=== PATIENT | male | born 1965 | race Caucasian/White ===

== ENCOUNTER 2017-07-08 19:53 | Inpatient (IN) | payer OTHER ==
[2017-07-08] VITALS (8 sets, daily range): BP systolic 119–173; BP diastolic 72–112
[~2017-07-08] VITALS: Ht 185.4 cm; Wt 82.3 kg
--- NOTE | ~2017-07-08 | EKG ---
[place], [place] ELECTROCARDIOGRAM REPORT NAME: ANA HERNANDEZ UNIT #: [id number] ROOM: 426 DOCTOR: IFEANYI UNDERWOOD,KALYAN BIRTHDATE: [birth year] DOS: 07/09/2017 TIME: 1:48 a.m. IMPRESSION: 1. Sinus rhythm, sinus bradycardia. 2. Nonspecific ST-T changes. 3. Nondiagnostic ST elevation. KALYAN SUGGS MD CM:EKGRPT:ELECTROCARDIOGRAM REPORT 1505 1649 KALYAN SUGGS MD
--- NOTE | ~2017-07-08 | EKG ---
[place], [place] ELECTROCARDIOGRAM REPORT NAME: ANA HERNANDEZ UNIT #: [id number] ROOM: 426 DOCTOR: IFEANYI UNDERWOOD,KALYAN BIRTHDATE: [birth year] DOS: 07/08/2017 TIME: 2254 hours. IMPRESSION: 1. Sinus rhythm. 2. Nonspecific ST-T changes. KALYAN SUGGS MD CM:EKGRPT:ELECTROCARDIOGRAM REPORT 1504 1648 KALYAN SUGGS MD
--- NOTE | ~2017-07-08 | EKG ---
[place], [place] ELECTROCARDIOGRAM REPORT NAME: ANA HERNANDEZ UNIT #: [id number] ROOM: 426 DOCTOR: IFEANYI UNDERWOOD,KALYAN BIRTHDATE: [birth year] DOS: 07/08/2017 TIME: 2033 hours. IMPRESSION: 1. Sinus rhythm. 2. Nonspecific ST-T changes. KALYAN SUGGS MD CM:EKGRPT:ELECTROCARDIOGRAM REPORT 1503 1647 KALYAN SUGGS MD
--- NOTE | ~2017-07-08 | EKG ---
[place], [place] ELECTROCARDIOGRAM REPORT NAME: ANA HERNANDEZ UNIT #: [id number] ROOM: 426 DOCTOR: IFEANYI UNDERWOOD,KALYAN BIRTHDATE: [birth year] DOS: 07/08/2017 TIME: 1955 hours. IMPRESSION: 1. Sinus rhythm. 2. Nonspecific ST-T changes. KALYAN SUGGS MD CM:EKGRPT:ELECTROCARDIOGRAM REPORT 1503 1630 KALYAN SUGGS MD
[~2017-07-08 19:53] MED LIST: FLOMAX0.4 MG PO; HYDROCODONE BIT1 T11 PO; MEDROL DOSEPAK4 MG PO; VICODIN ES 7501 TAB PO; ZOFRAN ODT4 MG SL
[2017-07-08 20:29] LABS: HEMOGLOBIN 14.1 g/dl (14.0-18.0); MEAN CORPUSCULAR HGB 28.5 pg (27.0-31.0); MEAN CORPUSCULAR HGB CONC 34.4 g/dl (33.0-37.0); MEAN PLATELET VOLUME 9.5 fl (9.6-12.3); NUCLEATED RED BLOOD CELL 0.2 % (0.0-0.0); PLATELET COUNT AUTOMATED 257 10*3/uL (130-400); RED BLOOD COUNT 4.94 10*6/uL (4.50-5.90); RED CELL DISTRI WIDTH 15.7 % (0-14.5); WHITE BLOOD COUNT 9.2 10*3/uL (4.8-10.8)
[2017-07-08 20:40] LABS: ACT PARTIAL THROMBO TIME 28.4 SECONDS (20.8-31.5)
[2017-07-08 20:48] LABS: ALBUMIN 4.2 gm/dl (3.1-4.5); ALKALINE PHOSPHATASE 119 U/L (45-117); BUN 14 mg/dl (7-24); CHLORIDE 105 mmol/L (98-107); CREATININE 1.04 mg/dL (0.70-1.30); POTASSIUM 4.4 mmol/L (3.5-5.1); SGOT/AST 29 IU/L (3-35); SGPT/ALT 31 U/L (12-78); SODIUM 139 mmol/L (136-145); TOTAL PROTEIN 7.9 gm/dL (6.4-8.2)
[2017-07-08 20:49] LABS: TROPONIN I < 0.015 ng/ml (<0.045)
[2017-07-08 20:50] LABS: BASOPHILS 1 % (0-1); TOTAL CELLS COUNTED 100 #CELLS
[2017-07-08 20:51] LABS: PLATELET SUFFICIENCY NORMAL (NORMAL); POLYCHROMASIA SLIGHT
[2017-07-08 20:52] LABS: OVALOCYTES FEW
--- NOTE | 2017-07-08 21:17 | NUR ---
PT STATES THAT HIS PAIN LEVEL HAS GONE DOWN TO A 6/10 BUT STILL CONSTANT AND BOTHERSOME. CHELSEA MEDEL RN
--- NOTE | 2017-07-08 21:46 | NUR ---
PT REPORTS PAIN 4/10 IN UPPER ABDOMINAL AREA AT THIS TIME.PT MEDICATE 0.5MG DILAUDID IVP.PT REFUSING REGLAN AT THIS TIME.
--- NOTE | 2017-07-08 23:00 | NUR ---
PT REPORTS MILD DISCOMFORT IN UPPER ABDOMINAL AREA BUT STATES HE FEELS ALOT BETTER.
--- NOTE | 2017-07-08 23:51 | NUR ---
NURSE TO RETURN CALL FOR REPORT.
[2017-07-09 00:30] VITALS: BP 123/74
--- NOTE | 2017-07-09 00:30 | NUR ---
A 52, admitted to , under the services of ABBI García DO with a diagnosis of ABDOMINAL PAIN, CHOLELITHIASIS. Chief complaint is SUBSTERNAL CHEST PAIN NON RADIATING. Patient arrived via stretcher from ER. Monitor applied. Initial assessment completed. Vital signs taken and recorded. ABBI GARCÍA DO notified of admission to the unit. Orders received. See assessment for past medical history, medications and allergies. Patient and/or family oriented to unit. [facility] reviewed. Clothing/patient valuable form completed. PETRA HALL
--- NOTE | 2017-07-09 06:24 | NUR ---
SPOKE WITH DR. GODWIN REGARDING CONSULT ORDER.
[2017-07-09 06:37] LABS: BASO % 0.3 % (0.0-1.0); EOS % 0.2 % (1.0-4.0); HEMATOCRIT 39.1 % (42.0-52.0); LYMPH # 0.7 10*3/uL (1.3-4.4); MEAN CELL VOLUME 84.3 fl (80.0-94.0); MEAN CORPUSCULAR HGB CONC 33.2 g/dl (33.0-37.0); MONO # 0.9 10*3/uL (0.1-1.0); MONO % 8.2 % (3.0-9.0); NEUT # 9.3 10*3/uL (2.3-7.9); NEUT % 83.6 % (47.0-73.0); PLATELET COUNT AUTOMATED 217 10*3/uL (130-400); RED BLOOD COUNT 4.64 10*6/uL (4.50-5.90); RED CELL DISTRI WIDTH 15.7 % (0-14.5); WHITE BLOOD COUNT 11.2 10*3/uL (4.8-10.8)
[2017-07-09 07:10] LABS: ALBUMIN 3.7 gm/dl (3.1-4.5); ALKALINE PHOSPHATASE 109 U/L (45-117); BUN 10 mg/dl (7-24); CHLORIDE 106 mmol/L (98-107); CHOLESTEROL 175 mg/dL (<200); CREATININE 0.87 mg/dL (0.70-1.30); HDL CHOLESTEROL 33 mg/dl (40-60); LDL CHOLESTEROL 106 mg/dL (9-159); PHOSPHOROUS 2.5 mg/dL (2.5-4.9); POTASSIUM 4.1 mmol/L (3.5-5.1); SGOT/AST 27 IU/L (3-35); SGPT/ALT 28 U/L (12-78); SODIUM 140 mmol/L (136-145); TOTAL PROTEIN 7.1 gm/dL (6.4-8.2); TRIGLYCERIDES 182 mg/dl (<150); VLDL CHOLESTEROL 36 mg/dL (6-40)
[2017-07-09 07:15] LABS: ACT PARTIAL THROMBO TIME 28.3 SECONDS (20.8-31.5)
[2017-07-09 08:00] VITALS: BP 111/72
[2017-07-09 08:20] LABS: VITAMIN D, 25-HYDROXY 8.7 ng/mL (30-100)
--- NOTE | 2017-07-09 09:00 | NUR ---
DR GODWIN IN TO SEE PT.
--- NOTE | 2017-07-09 12:14 | NUR ---
PT DISCHARGED AT THIS TIME WITH TO HOME VIA WHEELCHAIR.
--- NOTE | 2017-07-09 12:14 | NUR ---
Discharge instructions reviewed with patient/family. Patient receptive and verbalizes understanding. Follow-up care arranged. Written instructions given to patient/family. LORENZO ACOSTA
== END 2017-07-09 12:14 | disposition home or self-care (01) | DRG 445 ==
LOC: ED 19:53 → EDHOLD 23:29 → 4E 23:38
PROVIDERS: Emergency Medicine Emergency Medical Services; Family Medicine; ADMIT Internal Medicine
DX: K80.20 Calculus of gallbladder without cholecystitis without obstruction (principal); E87.2 Acidosis; E83.41 Hypermagnesemia; R73.9 Hyperglycemia, unspecified; Z90.49 Acquired absence of other specified parts of digestive tract; Z88.2 Allergy status to sulfonamides; Z88.8 Allergy status to other drugs, medicaments and biological substances

== ENCOUNTER 2021-06-05 16:53 | Emergency (ER) | payer OTHER ==
[~2021-06-05] VITALS: Ht 185.4 cm; Wt 70.3 kg
[2021-06-05 17:30] LABS: MEAN CELL VOLUME 82.5 fl (80.0-94.0); MEAN CORPUSCULAR HGB 26.7 pg (27.0-31.0); MEAN CORPUSCULAR HGB CONC 32.3 g/dl (33.0-37.0); NUCLEATED RED BLOOD CELL 0.2 10*3/uL (0.0-0.0); NUCLEATED RED BLOOD CELL 0.7 % (0.0-0.0); RED BLOOD COUNT 3.15 10*6/uL (4.50-5.90); RED CELL DISTRI WIDTH 17.1 % (0-14.5); WHITE BLOOD COUNT 28.9 10*3/uL (4.8-10.8)
[2021-06-05 17:37] LABS: PLATELET COUNT AUTOMATED 7 10*3/uL (130-400)
[2021-06-05 17:42] LABS: ACT PARTIAL THROMBO TIME 26.5 SECONDS (20.0-32.1); BUN 16 mg/dl (7-24); CHLORIDE 107 mmol/L (98-107); CREATININE 0.65 mg/dL (0.70-1.30); POTASSIUM 3.9 mmol/L (3.5-5.1); SODIUM 139 mmol/L (136-145)
[2021-06-05 18:11] LABS: ATYPICAL LYMPHS 2 % (0-0); TOTAL CELLS COUNTED 100 #CELLS
[2021-06-05 18:13] LABS: BLASTS 16 % (0-0); MICROCYTOSIS MODERATE; PLATELET SUFFICIENCY LOW (NORMAL); POLYCHROMASIA SLIGHT
== END 2021-06-05 22:26 | disposition left against medical advice (07) ==
LOC: ED 16:53
PROVIDERS: Emergency Medicine
DX: D69.6 Thrombocytopenia, unspecified (principal); Z88.1 Allergy status to other antibiotic agents

== ENCOUNTER 2021-06-06 08:04 | Emergency (ER) | payer OTHER ==
[~2021-06-06] VITALS: Ht 185.4 cm; Wt 70.3 kg
[2021-06-06 10:30] VITALS: BP 113/73
[2021-06-06 10:45] VITALS: BP 115/73
[2021-06-06 11:00] VITALS: BP 107/75
[2021-06-06 11:15] VITALS: BP 110/78
== END 2021-06-06 11:11 | disposition home or self-care (01) ==
LOC: ED 08:04
DX: D69.6 Thrombocytopenia, unspecified (principal); C92.00 Acute myeloblastic leukemia, not having achieved remission; Z88.1 Allergy status to other antibiotic agents

== ENCOUNTER 2021-07-15 20:30 | Emergency (ER) | payer OTHER ==
[~2021-07-15] VITALS: Ht 185.4 cm; Wt 72.6 kg
[2021-07-15 22:01] LABS: MEAN CELL VOLUME 87.9 fl (80.0-94.0); MEAN CORPUSCULAR HGB CONC 29.6 g/dl (33.0-37.0); NUCLEATED RED BLOOD CELL 26.4 % (0.0-0.0); NUCLEATED RED BLOOD CELL 4.5 10*3/uL (0.0-0.0); RED BLOOD COUNT 2.73 10*6/uL (4.50-5.90); RED CELL DISTRI WIDTH 22.5 % (0-14.5); WHITE BLOOD COUNT 16.9 10*3/uL (4.8-10.8)
[2021-07-15 22:13] LABS: ALBUMIN 3.5 gm/dl (3.1-4.5); ALKALINE PHOSPHATASE 145 U/L (45-117); BUN 17 mg/dl (7-24); CHLORIDE 107 mmol/L (98-107); CREATININE 0.77 mg/dL (0.70-1.30); SGOT/AST 55 IU/L (3-35); SGPT/ALT 21 U/L (12-78); SODIUM 140 mmol/L (136-145); TOTAL PROTEIN 6.8 gm/dL (6.4-8.2)
[2021-07-15 22:51] LABS: PLATELET COUNT AUTOMATED 16 10*3/uL (130-400)
[2021-07-15 23:20] LABS: TOTAL CELLS COUNTED 100 #CELLS
[2021-07-15 23:23] LABS: PLATELET SUFFICIENCY LOW (NORMAL)
[2021-07-15 23:30] LABS: POLYCHROMASIA SLIGHT
[2021-07-16] MEDS ORDERED: METHOCARBAMOL750 M1 PO (01:44)
[2021-07-16 09:55] LABS: BASOPHILS 6 % (0-1)
[2021-07-16 09:58] LABS: BLASTS 36 % (0-0)
[2021-07-16] MEDS ORDERED: HYDROCODONE-AC1 EACH PO (14:05)
== END 2021-07-16 02:12 | disposition home or self-care (01) ==
LOC: ED 20:30
PROVIDERS: Physician Assistant
DX: S39.012A Strain of muscle, fascia and tendon of lower back, initial encounter (principal); D72.829 Elevated white blood cell count, unspecified; D64.9 Anemia, unspecified; D69.6 Thrombocytopenia, unspecified; R79.89 Other specified abnormal findings of blood chemistry; Z88.1 Allergy status to other antibiotic agents; X58.XXXA Exposure to other specified factors, initial encounter; Y93.89 Activity, other specified; Y92.89 Other specified places as the place of occurrence of the external cause; Y99.8 Other external cause status

== ENCOUNTER 2021-07-16 13:48 | Emergency (ER) | payer OTHER ==
[~2021-07-16] VITALS: Wt 74.8 kg
[~2021-07-16 13:48] MED LIST changes: +METHOCARBAMOL750 M1 PO
[2021-07-16] MEDS ORDERED: HYDROCODONE-AC1 EACH PO (14:05)
[2021-07-16 14:44] LABS: HEMATOCRIT 27.2 % (42.0-52.0); MEAN CELL VOLUME 86.9 fl (80.0-94.0); MEAN CORPUSCULAR HGB 25.2 pg (27.0-31.0); NUCLEATED RED BLOOD CELL 23.8 % (0.0-0.0); NUCLEATED RED BLOOD CELL 4.9 10*3/uL (0.0-0.0); RED BLOOD COUNT 3.13 10*6/uL (4.50-5.90); RED CELL DISTRI WIDTH 23.1 % (0-14.5); WHITE BLOOD COUNT 20.4 10*3/uL (4.8-10.8)
[2021-07-16 14:52] LABS: ALBUMIN 3.7 gm/dl (3.1-4.5); ALKALINE PHOSPHATASE 155 U/L (45-117); BUN 18 mg/dl (7-24); CHLORIDE 108 mmol/L (98-107); CREATININE 0.67 mg/dL (0.70-1.30); LIPASE 62 U/L (73-393); POTASSIUM 4.2 mmol/L (3.5-5.1); SGOT/AST 57 IU/L (3-35); SGPT/ALT 22 U/L (12-78); SODIUM 141 mmol/L (136-145); TOTAL PROTEIN 7.2 gm/dL (6.4-8.2)
[2021-07-16 14:53] LABS: ACT PARTIAL THROMBO TIME 31.2 SECONDS (20.0-32.1)
[2021-07-16 15:14] LABS: ATYPICAL LYMPHS 3 % (0-0); BASOPHILS 1 % (0-1); TOTAL CELLS COUNTED 100 #CELLS
[2021-07-16 15:15] LABS: BLASTS 36 % (0-0); PLATELET SUFFICIENCY LOW (NORMAL); POLYCHROMASIA MODERATE
[2021-07-16 15:18] LABS: MICROCYTOSIS MODERATE
[2021-07-16 15:21] LABS: PLATELET COUNT AUTOMATED 16 10*3/uL (130-400)
== END 2021-07-16 15:17 | disposition home or self-care (01) ==
LOC: ED 13:48
PROVIDERS: Emergency Medicine
DX: M54.2 Cervicalgia (principal); C92.00 Acute myeloblastic leukemia, not having achieved remission; K80.80 Other cholelithiasis without obstruction; R16.1 Splenomegaly, not elsewhere classified; Z88.1 Allergy status to other antibiotic agents

== ENCOUNTER 2022-03-01 19:19 | Inpatient (IN) | payer OTHER ==
[~2022-03-01] VITALS: Ht 185.4 cm; Wt 75.1 kg
[2022-03-01] VITALS (8 sets, daily range): BP systolic 88–102; BP diastolic 47–69
[~2022-03-01 19:19] MED LIST changes: +HYDROCODONE-AC1 EACH PO
[2022-03-01 20:46] LABS: MEAN CELL VOLUME 98.9 fl (80.0-94.0); MEAN CORPUSCULAR HGB 29.9 pg (27.0-31.0); MEAN CORPUSCULAR HGB CONC 30.3 g/dl (33.0-37.0); NUCLEATED RED BLOOD CELL 2.5 10*3/uL (0.0-0.0); NUCLEATED RED BLOOD CELL 7.1 % (0.0-0.0); RED BLOOD COUNT 1.77 10*6/uL (4.50-5.90); RED CELL DISTRI WIDTH 27.6 % (0-14.5); WHITE BLOOD COUNT 35.4 10*3/uL (4.8-10.8)
[2022-03-01 21:02] LABS: ALKALINE PHOSPHATASE 95 U/L (45-117); BUN 13 mg/dl (7-24); CHLORIDE 106 mmol/L (98-107); CREATININE 0.74 mg/dL (0.70-1.30); POTASSIUM 4.3 mmol/L (3.5-5.1); SGOT/AST 40 IU/L (3-35); SGPT/ALT 12 U/L (12-78); SODIUM 137 mmol/L (136-145); TOTAL PROTEIN 5.5 gm/dL (6.4-8.2)
[2022-03-01 21:04] LABS: MANUAL DIFF REFLEX YES
[2022-03-01 21:16] LABS: BASOPHILS 2 % (0-1); TOTAL CELLS COUNTED 100 #CELLS
[2022-03-01 21:17] LABS: BLASTS 89 % (0-0)
[2022-03-01 21:18] LABS: PLATELET SUFFICIENCY LOW (NORMAL); POLYCHROMASIA MODERATE
[2022-03-01 21:20] LABS: MICROCYTOSIS SLIGHT
[2022-03-01 21:22] LABS: HEMATOCRIT 17.5 % (42.0-52.0); PLATELET COUNT AUTOMATED 11 10*3/uL (130-400)
[2022-03-02] VITALS (13 sets, daily range): BP systolic 97–126; BP diastolic 57–93
[2022-03-02] MEDS ORDERED: ACYCLOVIR800 MG PO (02:16)
[2022-03-02] MEDS ORDERED: HYDREA500 M1 PO (02:16)
[2022-03-02] MEDS ORDERED: PROTONIX40 MG PO (02:17)
[2022-03-02] MEDS ORDERED: FLUCONAZOLE200 MG PO (02:17)
[2022-03-02] MEDS ORDERED: ONDANSETRON8 MG PO (02:18)
[2022-03-02] MEDS ORDERED: DOXEPIN25 MG PO (02:18)
[2022-03-02] MEDS ORDERED: LEVOFLOXACIN500 MG PO (02:19)
[2022-03-02 07:57] LABS: MEAN CELL VOLUME 96.8 fl (80.0-94.0); MEAN CORPUSCULAR HGB 30.2 pg (27.0-31.0); MEAN CORPUSCULAR HGB CONC 31.3 g/dl (33.0-37.0); NUCLEATED RED BLOOD CELL 2.3 10*3/uL (0.0-0.0); NUCLEATED RED BLOOD CELL 6.7 % (0.0-0.0); RED BLOOD COUNT 2.48 10*6/uL (4.50-5.90); RED CELL DISTRI WIDTH 23.5 % (0-14.5); WHITE BLOOD COUNT 33.9 10*3/uL (4.8-10.8)
[2022-03-02 08:01] LABS: MANUAL DIFF REFLEX YES
[2022-03-02 08:04] LABS: PLATELET COUNT AUTOMATED 16 10*3/uL (130-400)
[2022-03-02 08:07] LABS: BUN 12 mg/dl (7-24); CHLORIDE 106 mmol/L (98-107); CREATININE 0.76 mg/dL (0.70-1.30); SODIUM 140 mmol/L (136-145)
[2022-03-02 08:24] LABS: ATYPICAL LYMPHS 1 % (0-0); BASOPHILS 2 % (0-1); BLASTS 81 % (0-0); TOTAL CELLS COUNTED 100 #CELLS
[2022-03-02 08:25] LABS: OVALOCYTES FEW; PLATELET SUFFICIENCY LOW (NORMAL); POLYCHROMASIA SLIGHT; SCHISTOCYTES FEW
== END 2022-03-02 10:00 | disposition home or self-care (01) | DRG 834 ==
LOC: ED 19:19 → 5E 03-02 00:04 → EDHOLD 03-02 00:04 → 5E 03-02 01:18
PROVIDERS: Emergency Medicine; Student in an Organized Health Care Education/Training Program; ADMIT Internal Medicine; ATTEND Internal Medicine
PROC: 30233R1 Transfusion of Nonautologous Platelets into Peripheral Vein, Percutaneous Approach (ICD-10-PCS; principal; 2022-03-02)
PROC: 30233N1 Transfusion of Nonautologous Red Blood Cells into Peripheral Vein, Percutaneous Approach (ICD-10-PCS; 2022-03-02)
DX: C92.00 Acute myeloblastic leukemia, not having achieved remission (principal); E43 Unspecified severe protein-calorie malnutrition; D69.6 Thrombocytopenia, unspecified; C95.00 Acute leukemia of unspecified cell type not having achieved remission; M54.2 Cervicalgia; Z88.2 Allergy status to sulfonamides; Z88.8 Allergy status to other drugs, medicaments and biological substances; Z90.49 Acquired absence of other specified parts of digestive tract; Z68.21 Body mass index [BMI] 21.0-21.9, adult

== ENCOUNTER 2022-03-31 09:59 | Emergency (ER) | payer OTHER ==
[~2022-03-31] VITALS: Wt 73.5 kg
[~2022-03-31 09:59] MED LIST changes: +ACYCLOVIR800 MG PO; +DOXEPIN25 MG PO; +FLUCONAZOLE200 MG PO; +HYDREA500 M1 PO; +LEVOFLOXACIN500 MG PO; +ONDANSETRON8 MG PO; +PROTONIX40 MG PO
[2022-03-31 10:33] LABS: HEMATOCRIT 22.5 % (42.0-52.0); MEAN CELL VOLUME 96.2 fl (80.0-94.0); MEAN CORPUSCULAR HGB 31.2 pg (27.0-31.0); MEAN CORPUSCULAR HGB CONC 32.4 g/dl (33.0-37.0); NUCLEATED RED BLOOD CELL 3.8 % (0.0-0.0); RED BLOOD COUNT 2.34 10*6/uL (4.50-5.90); RED CELL DISTRI WIDTH 24.4 % (0-14.5)
[2022-03-31 10:43] LABS: MANUAL DIFF REFLEX YES
[2022-03-31 10:50] LABS: ALKALINE PHOSPHATASE 91 U/L (45-117); BUN 11 mg/dl (7-24); CHLORIDE 106 mmol/L (98-107); CREATININE 0.66 mg/dL (0.70-1.30); POTASSIUM 4.2 mmol/L (3.5-5.1); SGOT/AST 30 IU/L (3-35); SGPT/ALT 12 U/L (12-78); SODIUM 137 mmol/L (136-145); TOTAL PROTEIN 6.2 gm/dL (6.4-8.2)
[2022-03-31 10:57] LABS: TOTAL CELLS COUNTED 100 #CELLS
[2022-03-31 10:58] LABS: OVALOCYTES FEW; PLATELET SUFFICIENCY LOW (NORMAL); POLYCHROMASIA SLIGHT; SCHISTOCYTES FEW
[2022-03-31 11:00] LABS: WHITE BLOOD COUNT 52.7 10*3/uL (4.8-10.8)
[2022-03-31 11:01] LABS: BLASTS 92 % (0-0); PLATELET COUNT AUTOMATED 5 10*3/uL (130-400)
[2022-03-31 14:22] VITALS: BP 108/67
[2022-03-31 15:20] VITALS: BP 103/66
== END 2022-03-31 15:44 | disposition home or self-care (01) ==
LOC: ED 09:59
PROVIDERS: Emergency Medicine
DX: D69.6 Thrombocytopenia, unspecified (principal); R21 Rash and other nonspecific skin eruption; E43 Unspecified severe protein-calorie malnutrition; Z88.2 Allergy status to sulfonamides; Z79.899 Other long term (current) drug therapy; Z79.2 Long term (current) use of antibiotics; Z87.442 Personal history of urinary calculi; Z90.49 Acquired absence of other specified parts of digestive tract; Z98.890 Other specified postprocedural states

== ENCOUNTER 2022-04-10 07:46 | Emergency (ER) | payer OTHER ==
[~2022-04-10] VITALS: Ht 185.4 cm; Wt 73.5 kg
[2022-04-10 08:30] LABS: MEAN CELL VOLUME 98.9 fl (80.0-94.0); MEAN CORPUSCULAR HGB 30.9 pg (27.0-31.0); MEAN CORPUSCULAR HGB CONC 31.3 g/dl (33.0-37.0); NUCLEATED RED BLOOD CELL 0.6 10*3/uL (0.0-0.0); NUCLEATED RED BLOOD CELL 1.9 % (0.0-0.0); RED BLOOD COUNT 1.81 10*6/uL (4.50-5.90); RED CELL DISTRI WIDTH 25.7 % (0-14.5); WHITE BLOOD COUNT 32.2 10*3/uL (4.8-10.8)
[2022-04-10 08:36] LABS: BUN 20 mg/dl (7-24); CHLORIDE 103 mmol/L (98-107); MANUAL DIFF REFLEX YES; SODIUM 136 mmol/L (136-145)
[2022-04-10 08:38] LABS: HEMATOCRIT 17.9 % (42.0-52.0); PLATELET COUNT AUTOMATED 5 10*3/uL (130-400)
[2022-04-10 08:57] LABS: ATYPICAL LYMPHS 1 % (0-0); TOTAL CELLS COUNTED 100 #CELLS
[2022-04-10 08:58] LABS: OVALOCYTES FEW; PLATELET SUFFICIENCY LOW (NORMAL); POLYCHROMASIA SLIGHT; SCHISTOCYTES FEW
[2022-04-10 08:59] LABS: BLASTS 92 % (0-0)
[2022-04-10 09:43] VITALS: BP 104/67
[2022-04-10 10:24] VITALS: BP 107/65
[2022-04-10 10:49] VITALS: BP 99/48
[2022-04-10 11:28] VITALS: BP 97/58
[2022-04-10 12:08] VITALS: BP 92/57
[2022-04-10 12:41] VITALS: BP 102/67
== END 2022-04-10 18:18 | disposition home or self-care (01) ==
LOC: ED 07:46
PROVIDERS: Emergency Medicine
DX: C95.90 Leukemia, unspecified not having achieved remission (principal); Z90.49 Acquired absence of other specified parts of digestive tract; Z98.890 Other specified postprocedural states; Z79.899 Other long term (current) drug therapy; Z88.1 Allergy status to other antibiotic agents

== ENCOUNTER 2022-04-17 07:16 | Emergency (ER) | payer OTHER ==
[2022-04-17] VITALS (8 sets, daily range): BP systolic 93–134; BP diastolic 58–69
[~2022-04-17] VITALS: Ht 185.4 cm; Wt 73.5 kg
== END 2022-04-17 15:32 | disposition home or self-care (01) ==
LOC: ED 07:16
DX: C91.10 Chronic lymphocytic leukemia of B-cell type not having achieved remission (principal); D69.6 Thrombocytopenia, unspecified; Z90.49 Acquired absence of other specified parts of digestive tract; Z98.890 Other specified postprocedural states; Z79.899 Other long term (current) drug therapy; Z88.1 Allergy status to other antibiotic agents

== ENCOUNTER 2022-04-27 08:39 | Emergency (ER) | payer OTHER ==
[~2022-04-27] VITALS: Ht 185.4 cm; Wt 71.7 kg
[2022-04-27] VITALS (8 sets, daily range): BP systolic 90–109; BP diastolic 53–64
[2022-04-27 09:36] LABS: MEAN CELL VOLUME 89.5 fl (80.0-94.0); MEAN CORPUSCULAR HGB 30.4 pg (27.0-31.0); NUCLEATED RED BLOOD CELL 0.4 % (0.0-0.0); RED BLOOD COUNT 1.81 10*6/uL (4.50-5.90); RED CELL DISTRI WIDTH 17.7 % (0-14.5); WHITE BLOOD COUNT 4.9 10*3/uL (4.8-10.8)
[2022-04-27 09:50] LABS: ALKALINE PHOSPHATASE 107 U/L (45-117); BUN 22 mg/dl (7-24); CHLORIDE 106 mmol/L (98-107); CREATININE 0.96 mg/dL (0.70-1.30); POTASSIUM 4.5 mmol/L (3.5-5.1); SGOT/AST 14 IU/L (3-35); SGPT/ALT 15 U/L (12-78); SODIUM 138 mmol/L (136-145); TOTAL PROTEIN 6.3 gm/dL (6.4-8.2)
[2022-04-27 09:58] LABS: MANUAL DIFF REFLEX YES
[2022-04-27 10:02] LABS: BASOPHILS 3 % (0-1); MICROCYTOSIS SLIGHT; OVALOCYTES FEW; PLATELET SUFFICIENCY LOW (NORMAL); POLYCHROMASIA SLIGHT; SCHISTOCYTES FEW; TOTAL CELLS COUNTED 100 #CELLS
[2022-04-27 10:04] LABS: BLASTS 84 % (0-0); HEMATOCRIT 16.2 % (42.0-52.0); PLATELET COUNT AUTOMATED 1 10*3/uL (130-400)
[2022-04-27 10:19] LABS: INTERNATIONAL NORM RATIO 1.1 (2.0-3.5)
== END 2022-04-27 14:30 | disposition home or self-care (01) ==
LOC: ED 08:39
PROVIDERS: Emergency Medicine
DX: C95.90 Leukemia, unspecified not having achieved remission (principal); Z88.1 Allergy status to other antibiotic agents; Z79.899 Other long term (current) drug therapy; Z90.49 Acquired absence of other specified parts of digestive tract; Z98.890 Other specified postprocedural states

== ENCOUNTER 2022-05-06 08:36 | Emergency (ER) | payer OTHER ==
[~2022-05-06] VITALS: Ht 185.4 cm; Wt 68.5 kg
[2022-05-06 09:55] LABS: MEAN CELL VOLUME 90.6 fl (80.0-94.0); MEAN CORPUSCULAR HGB 29.3 pg (27.0-31.0); MEAN CORPUSCULAR HGB CONC 32.4 g/dl (33.0-37.0); NUCLEATED RED BLOOD CELL 0.7 10*3/uL (0.0-0.0); NUCLEATED RED BLOOD CELL 3.4 % (0.0-0.0); RED BLOOD COUNT 1.91 10*6/uL (4.50-5.90); RED CELL DISTRI WIDTH 16.8 % (0-14.5); WHITE BLOOD COUNT 20.1 10*3/uL (4.8-10.8)
[2022-05-06 09:57] LABS: MANUAL DIFF REFLEX YES
[2022-05-06 09:58] LABS: HEMATOCRIT 17.3 % (42.0-52.0); PLATELET COUNT AUTOMATED 2 10*3/uL (130-400)
[2022-05-06 10:00] LABS: ACT PARTIAL THROMBO TIME 30.8 SECONDS (20.0-32.1); INTERNATIONAL NORM RATIO 1.2 (2.0-3.5)
[2022-05-06 10:14] LABS: ALKALINE PHOSPHATASE 86 U/L (45-117); BUN 9 mg/dl (7-24); CHLORIDE 106 mmol/L (98-107); CREATININE 0.83 mg/dL (0.70-1.30); POTASSIUM 3.9 mmol/L (3.5-5.1); SGOT/AST 9 IU/L (3-35); SGPT/ALT 11 U/L (12-78); SODIUM 137 mmol/L (136-145); TOTAL PROTEIN 6.1 gm/dL (6.4-8.2)
[2022-05-06 10:20] LABS: ATYPICAL LYMPHS 6 % (0-0); OVALOCYTES FEW; PLATELET SUFFICIENCY LOW (NORMAL); POLYCHROMASIA SLIGHT; TOTAL CELLS COUNTED 100 #CELLS
[2022-05-06 10:21] LABS: SCHISTOCYTES FEW
[2022-05-06 10:22] LABS: BLASTS 79 % (0-0)
[2022-05-06 12:54] VITALS: BP 91/52
[2022-05-06 13:47] VITALS: BP 90/60
[2022-05-06 14:48] VITALS: BP 92/66
[2022-05-06 16:10] VITALS: BP 97/60
[2022-05-06 16:25] VITALS: BP 95/59
[2022-05-06 17:30] VITALS: BP 98/61
== END 2022-05-06 18:15 | disposition home or self-care (01) ==
LOC: ED 08:36
PROVIDERS: Family Medicine
DX: D64.9 Anemia, unspecified (principal); C95.90 Leukemia, unspecified not having achieved remission; D69.6 Thrombocytopenia, unspecified